=== PATIENT | female | born 1960 | race Caucasian/White ===

== ENCOUNTER 2019-04-29 06:45 | Day surgery (SDC) | payer BC ==
[2019-04-27 11:02] LABS: HEMATOCRIT 39.7 % (36.0-48.0); MCH 30.7 pg (26.0-34.0); MCHC 32.7 g/dL (31.0-37.0); MCV 93.9 fL (80.0-100.0); MEAN PLATELET VOLUME 10.3 fL (7.4-10.4); RBC 4.23 10x6/uL (4.00-5.40); RDW 12.9 % (11.5-14.5); WBC 6.5 10x3/uL (4.8-10.8)
[~2019-04-29] VITALS: Ht 165.1 cm; Wt 86.2 kg
[~2019-04-29 06:45] MED LIST: ADDERALL 20 MG20 M1 PO; ALEVE220 MG PO; ESTRACE1 MG PO; LISINOPRIL10 MG PO; MIRAPEX1.5 MG PO; OMEPRAZOLE40 MG PO; SYNTHROID50 MCG PO; [UNRECOGNIZED DRUG - OTHER] PO
[2019-04-29 07:14] VITALS: BP 135/56; Ht 165.1 cm; Wt 86.2 kg
[2019-04-29] MEDS ORDERED: HYDROCODON-ACE1 EA10 PO (11:45)
--- NOTE | 2019-04-29 13:49 | NUR ---
PT DC INSTRUCTIONS REVIEWED AT THIS TIME, PT AND FAMILY VERBALIZE UNDERSTANDING. PT IV REMOVED AT THIS TIME, NO REDNESS OR SWELLING NOTED AT SITE. PT IV DRESSED WITH BANDAID NOT ACTIVELY BLEEDING AT THIS TIME.
--- NOTE | 2019-04-29 13:54 | NUR ---
PT LEAVING OPS AT THIS TIME, NAD NOTED.
--- NOTE | 2019-04-30 09:46 | OP ---
PATIENT NAME: ANDREA ISSA MEDICAL RECORD: [id number] :64 LOCATION:D.OPS ADMISSION DATE: SURGEON: SHOBHA GONZALEZ MD DATE OF OPERATION: 04/29/2019 PREOPERATIVE DIAGNOSIS: Impingement syndrome of the right shoulder with severe biceps tendinitis. POSTOPERATIVE DIAGNOSIS: Impingement syndrome of the right shoulder with severe biceps tendinitis. PROCEDURES: 1. Right shoulder arthroscopy with biceps tenotomy. 2. Arthroscopic distal clavicle excision of the right shoulder done through separate incision - 1 cm. 3. Arthroscopic subacromial decompression with acromioplasty and bursectomy. SURGEON: Shobha Gonzalez MD ANESTHESIA: General. INTRAOPERATIVE COMPLICATIONS: None. SUMMARY OF PATHOLOGIC FINDINGS: Consistent with preoperative radiographs, the patient's physical examination as well as further imaging, the patient did have a downward sloping acromion and acromioclavicular arthritis. Most profoundly, however, she had near complete tearing of the biceps tendon at the proximal aspect of the bicipital groove. OPERATIVE SUMMARY IN DETAIL: After obtaining the appropriate preoperative orthopedic surgery consent as well as anesthetic consultation, evaluation, and clearance, the patient was brought to the operating room and placed on the operating table in the supine position. After adequate general laryngeal mask airway was administered, the patient was placed in a left lateral decubitus position. All pressure points were well padded to include down leg peroneal pad as well as axillary roll. The patient was held firmly to the operating table using vacuum pack suction system. Right upper extremity and shoulder were then prepped and draped in routine sterile fashion. The arm was held in the Arthrex traction boom at 30 degrees of forward flexion, 30 degrees of abduction, and 10 pounds of traction laterally. Arthroscopy was established in the glenohumeral joint from the posterior portal. Anterior portal was established in the anterior safe interval. Diagnostic arthroscopy did show the patient to have the severe biceps tendonitis as noted. [place] tissue ablation system was utilized to release the biceps tendon at the bicipital labral junction. Having completed this, attention was turned to the subacromial space. While in the subacromial space, excoriation of the coracoacromial ligament was noted. The [place] tissue ablation system was utilized to completely release the coracoacromial ligament and denude the undersurface of the acromion of all soft tissue elements. At this point, acromioplasty was done to the level of acromioclavicular joint under direct arthroscopic visualization. Finally, the distal clavicle was excised for 1 cm again through a separate arthroscopic portal and then all bursa was taken down anteriorly, laterally, posteriorly as well as superiorly. There was no evidence of rotator cuff tearing seen. Having completed this, arthroscopy portals were closed in routine interrupted fashion using 4-0 Prolene. Sterile dressings were applied. The patient was awakened and taken to the recovery room OPERATIVE REPORT [id number] ANDREA ISSA in stable condition. All final needle and sponge counts were correct. TRANSINT:[id number] Voice Confirmation ID: [id number] DOCUMENT ID: [id number] CARLOS DE LA FUENTE, SHOBHA PEGUERO at 0946 CC: [id number] DICTATION DATE: 04/30/19 0614 LITHARGE SUPERVISOR: 04/30/19 0846 [facility] 04/29/19 [id number] [place] [address]
== END 2019-04-29 13:54 | disposition home or self-care (01) ==
LOC: D.OPS 06:45 → D.PAN 09:25 → D.OPS 10:30
PROVIDERS: Anesthesiology; ATTEND Orthopaedic Surgery
DX: M75.41 Impingement syndrome of right shoulder (principal); M75.21 Bicipital tendinitis, right shoulder; L21.9 Seborrheic dermatitis, unspecified; I10 Essential (primary) hypertension; G35 Multiple sclerosis; E07.9 Disorder of thyroid, unspecified

== ENCOUNTER → 2020-04-26 07:37 | Outpatient (CLI) | payer BC ==
[2019-04-29 07:14] VITALS: BMI 31.6
[~2020-04-26 07:37] MED LIST changes: +HYDROCODON-ACE1 EA10 PO
== END | disposition home or self-care (01) ==
LOC: D.MRI 07:37
PROVIDERS: ATTEND Nurse Practitioner Family
DX: M75.102 Unspecified rotator cuff tear or rupture of left shoulder, not specified as traumatic (principal)

== ENCOUNTER 2020-06-08 05:07 | Day surgery (SDC) | payer BC, OTHER ==
[~2020-06-08] VITALS: Ht 165.1 cm; Wt 81.6 kg
--- NOTE | ~2020-06-08 | OP ---
PATIENT NAME: ANDREA ISSA MEDICAL RECORD: [id number] :64 LOCATION:[facility] ADMISSION DATE: SURGEON: RYNE YOON MD DATE OF OPERATION: 06/08/2020 PREOPERATIVE DIAGNOSES: 1. Left shoulder pain/impingement. 2. Partial rotator cuff tear. POSTOPERATIVE DIAGNOSES: 1. Left shoulder pain/impingement. 2. Partial rotator cuff tear. PROCEDURE PERFORMED: Left shoulder scope with SAD, DCE, limited glenohumeral debridement and mini open rotator cuff repair. INDICATIONS FOR THE PROCEDURE: Ms. Issa is a 59-year-old female with history of left shoulder pain. She had her shoulder scoped several years ago, but started having more pain recently. 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 We have attempted conservative treatment, but have not provided significant relief. MRI shows evidence of increased signal in the subacromial space and at the AC joint as well as at the insertion of the rotator cuff. She has elected to proceed with surgery for left shoulder arthroscopy. Risks, benefits and alternatives of surgery were discussed with the patient and consent was obtained. DESCRIPTION OF PROCEDURE: The patient was met in the holding area where her identity and confirmation of the procedure was performed. Left upper extremity was marked. She was taken to the operating room where she was placed supine on the operating table and anesthesia was administered. She was then positioned in the right lateral decubitus position. Extremities were positioned and padded appropriately. Left upper extremity was prepped and draped in a sterile fashion. A stockinette was applied and the arm was placed into skeletal traction. The patient received preoperative antibiotics and timeout was performed before initiating the case. On the initiation of the case, subacromial space was infiltrated with 15 mL of 0.25% Marcaine with epinephrine. The needle was then inserted into the shoulder joint and the joint was filled with saline. We then placed our posterior portal, inserted the camera and placed our anterior portal under direct visualization through the rotator cuff interval. Diagnostic shoulder arthroscopy was performed. There was synovitis within the shoulder and evidence of previous shoulder scope with a biceps tenotomy. The cartilage of the glenoid and humeral head were in good condition. There was fraying at the undersurface of the rotator cuff with a small bursal cuff tear at the insertion of the anterior cuff. The posterior cuff appeared to be in good condition. Limited glenohumeral debridement was performed with the shaver, and before and after images were obtained. We then moved to the subacromial space. Again, there was evidence of previous surgery and scarring in the bursal area. There was a narrowing at the AC joint. Small amount of fraying at the insertion of the rotator cuff, but no definitive tear. Subacromial debridement was performed using a cautery and a bur. Shaver was also used to debride the bursa. Distal clavicle excision was performed using a bur and cautery. Before and after images were obtained. With the partial thickness cuff tear, we elected to perform a [employer] patch implant for treatment of that cuff tear. A mini-open approach was made through our lateral portal. We dissected down through the OPERATIVE REPORT [id number] ANDREA ISSA tissues to the subdeltoid space. We were then able to access the subacromial space and examined the rotator cuff. There was some thinning of the tissues laterally. The [employer]inductive implant was then placed and secured in position with the tendon and bone anchors. Before and after images were obtained. This completed our rotator cuff repair. Wound was irrigated thoroughly with saline. The deltoid fascia was closed with Vicryl suture. The subcutaneous tissue was closed with Vicryl and the skin was closed with nylon. A sterile dressing was placed. The patient was placed into a sling, turned back over to anesthesia. She was awakened, extubated, and taken to recovery room in stable condition. POSTOPERATIVE PLAN: The patient is going to return home with her family today. She is to remain in the sling at all times with no shoulder range of motion. We will plan to see her back in clinic in 2 weeks. COMPLICATIONS: None. ESTIMATED BLOOD LOSS: 10 mL. ANESTHESIA: General with peripheral nerve block. TRANSINT:[id number] Voice Confirmation ID: [id number] DOCUMENT ID: [id number] RYNE YOON MD CC: [id number] DICTATION DATE: 06/08/20 1002 MORTGAGE LOAN UNDERWRITER: 06/08/20 1050 [facility] [address] [place] [address]
[~2020-06-08 05:07] MED LIST changes: +ZOLOFT100 MG PO
[2020-06-08 05:37] LABS: HEMATOCRIT 38.4 % (36.0-48.0); HEMOGLOBIN 12.1 g/dL (12-16); MCHC 31.5 g/dL (31.0-37.0); MEAN PLATELET VOLUME 10.2 fL (7.4-10.4); RBC 4.04 10x6/uL (4.00-5.40); RDW 13.6 % (11.5-14.5)
[2020-06-08 06:04] LABS: ANION GAP 10.8 mmol/L (8-16); CALCIUM 8.6 mg/dL (8.5-10.1); CARBON DIOXIDE 30.3 mmol/L (21.0-32.0); CREATININE - SERUM 0.9 mg/dL (0.6-1.3); POTASSIUM - SERUM 4.1 mmol/L (3.5-5.1)
[2020-06-08 06:48] VITALS: BP 113/51; Ht 165.1 cm; Wt 81.6 kg
--- NOTE | 2020-06-08 11:10 | NUR ---
DC INSTRUCTIONS TO PT AND FAMILY MEMBER. VERBALIZES UNDERSTANDING. 1140 PIV DC'D WITH CATHETER INTACT. FAMILY MEMBER HELPING PT TO GET DRESSED. 1150 PT DC'D TO POV VIA WC BY JASPER WITH ALL BELONGINGS AND DC PACKET WITH FAMILY MEMBER DRIVING
== END 2020-06-08 11:50 | disposition home or self-care (01) ==
LOC: D.OPS 05:07
PROVIDERS: Anesthesiology; ATTEND Orthopaedic Surgery
DX: M25.512 Pain in left shoulder (principal); M75.42 Impingement syndrome of left shoulder; M75.102 Unspecified rotator cuff tear or rupture of left shoulder, not specified as traumatic

== ENCOUNTER → 2020-07-25 13:29 | Outpatient (CLI) | payer BC, OTHER | END | disposition home or self-care (01) | LOC: D.MRI 13:29 | PROVIDERS: ATTEND Orthopaedic Surgery | DX: M75.112 Incomplete rotator cuff tear or rupture of left shoulder, not specified as traumatic (principal) ==